=== PATIENT | female | born 1995 | race Caucasian/White ===

== ENCOUNTER 2020-11-18 18:44 | Emergency (ER) | payer OTHER ==
[~2020-11-18] VITALS: Ht 157.5 cm; Wt 90.9 kg
[~2020-11-18 18:44] MED LIST: NOCURR
[2020-11-18 18:46] VITALS: BP 153/95
[2020-11-18] MEDS ORDERED: METF-960 PO (18:58)
[2020-11-18] MEDS ORDERED: MIRT30 PO (18:58)
[2020-11-18] MEDS ORDERED: ATOR10TA84 PO (18:58)
[2020-11-18] MEDS ORDERED: LITH300C3 PO (18:58)
[2020-11-18] MEDS ORDERED: LISI-892 PO (18:58)
[2020-11-18] MEDS ORDERED: FLUT16H NASAL (18:58)
[2020-11-18] MEDS ORDERED: LURA80TA2 PO (18:58)
[2020-11-18] MEDS ORDERED: HYDR-4031 PO (18:58)
[2020-11-18] MEDS ORDERED: VENL-68 PO (18:58)
[2020-11-18 19:00] LABS: GLUCOSE,POINT OF CARE 318 MG/DL (70-110)
== END 2020-11-18 20:33 | disposition left against medical advice (07) ==
LOC: EMS 18:44
DX: Z04.1 Encounter for examination and observation following transport accident (principal); Z53.21 Procedure and treatment not carried out due to patient leaving prior to being seen by health care provider
CPT/HCPCS: 82962